=== PATIENT | female | born 1955 | race Caucasian/White ===

== ENCOUNTER 2016-09-24 10:53 | Inpatient (IN) | payer OTHER ==
[~2016-09-24] VITALS: Ht 182.9 cm; Wt 113.3 kg
[~2016-09-24 10:53] MED LIST: ADVAIR HFA120 INHALA IH; AGGRENOX1 CAPSULE PO; ALER-CAP25 M2 PO; AMLODIPINE BESYL5 MG PO; ATENOLOL25 MG PO; BISA-LAX5 MG PO; BISAC-EVAC10 MG PR; CELEBREX200 MG PO; CEPACOL SORE T1 EAC9 MM; CLONIDINE HCL0.1 MG PO; COUGH CONT100 MG/5 M PO; DESYREL100 MG PO; DOXYCYCLINE HY100 MG PO; DULCOLAX10 MG PR; ERGOCALCIF50000 UNIT PO; GLUCAGON1 MG IM; GLUCOPHAGE1000 MG PO; GLUCOPHAGE500 MG PO; GUAIFENESIN600 MG PO; HYZAAR 50-121 TABLET PO; KLOR-CON 1010 ME1 PO; LAXATIVE5 M1 PO; LEVEMIR FL100 UNIT/1 SC; LEVEMIR100 UNIT/2 SC; LEVOTHYROXINE100 MCG PO; LEVOTHYROXINE88 MCG PO; LEXAPRO5 MG PO; LOVENOX40 MG/0.4 SC; LYRICA100 MG PO; MAGNESIUM OXID400 MG PO; MAGNESIUM400 M1 PO; MORPHINE SULFAT15 M1 PO; MUCINEX600 MG PO; MULTI VITAMIN1 EACH PO; NEXIUM40 MG PO; NON-ASPIRIN PA325 MG PO; NOVOLOG PE100 UNITS/ SC; OXYCODONE HCL10 MG PO; PRAVACHOL40 MG PO; PRAVASTATIN SOD40 MG PO; PROTONIX40 MG PO; PROVENTIL HFA6.7 GM IH; REFRESH EYE DR1 EACH BOTH EYES; REFRESH TEARS15 ML BOTH EYES; ROXICODONE5 MG PO; SYNTHROID100 MCG PO; TENORMIN25 MG PO; THERA-M1 EACH PO; TOPAMAX25 MG PO; TOPAMAX50 MG PO; TRAMADOL HCL50 MG PO; TRAZODONE HCL50 MG PO; TYLENOL ARTHRI650 MG PO; TYLENOL REGULA325 MG PO; VENLAFAXINE HCL50 MG PO; VITAMIN D50000 UNI4 PO; VOLTAREN 1% GE100 GM TP; XOPENEX HF200 INHALA IH; ZANTAC150 MG PO; ZOFRAN4 MG PO
[2016-09-24 12:13] LABS: CHLORIDE 106 mEq/L (99-109); SODIUM 140 mEq/L (136-147)
[2016-09-24 12:15] LABS: GLUCOSE 134 mg/dL (70-99)
[2016-09-24 12:16] LABS: ANION GAP 13 MEQ/L (2-14)
[2016-09-24 12:18] LABS: SERUM ETHYL ALCOHOL < 10 mg/dL
[2016-09-24 12:19] LABS: GFR ESTIMATE (CALCULATED) 25 mL/min/
[2016-09-24 12:20] LABS: HEMATOCRIT 40.1 % (36.0-46.0); MCH 32.5 PG (29.0-34.0); MCHC 32.9 G/DL (30.0-36.0); MCV 98.8 FL (83-99); MEAN PLAT.VOLUME 11.3 uM^3 (9.5-12.4); PLATELET COUNT 216 K/uL (156-360); RBC DIS.WIDTH-CV 13.8 % (11.8-14.6); RBC DIS.WIDTH-SD 49.5 % (39-53); RED BLOOD COUNT 4.06 M/uL (3.80-5.20); WHITE BLOOD COUNT 7.4 K/uL (4.1-10.2)
[2016-09-24 12:21] LABS: UREA NITROGEN (BUN) 54 mg/dL (9-23)
[2016-09-24 12:22] LABS: SALICYLATE < 5.0 MG/DL (15-30)
[2016-09-24 12:24] LABS: POTASSIUM 6.1 mEq/L (3.7-5.4)
[2016-09-24] MEDS ORDERED: LOSARTAN POTASS50 MG PO (13:44)
[2016-09-24] MEDS ORDERED: TRAZODONE HCL100 MG PO (13:45)
[2016-09-24] MEDS ORDERED: TRESIBA FL200 UNIT/1 SC (13:47)
[2016-09-24] MEDS ORDERED: DECARA50000 UNIT PO (13:49)
[2016-09-24] MEDS ORDERED: GEMFIBROZIL600 MG PO (13:50)
[2016-09-24] MEDS ORDERED: ATIVAN0.5 MG PO (13:54)
[2016-09-24] MEDS ORDERED: DUONEB 2.5-0.5 M3 ML AEROSOL (13:55)
[2016-09-24 14:28] LABS: ADD MIUA? YES; BILIRUBIN SMALL; BLOOD SMALL; COLOR DK YELLOW ((YELLOW)); GLUCOSE (STRIP) NEGATIVE; KETONES 15; LEUKOCYTES SMALL; NITRITE NEGATIVE; PROTEIN (STRIP) >=300; SPECIFIC GRAVITY 1.027 (1.000-1.030); UROBILINOGEN 0.2 MG/DL (0.2-1.0)
[2016-09-24 14:41] LABS: COCAINE NEGATIVE (150 ng/mL); PHENCYCLIDINE NEGATIVE (25 ng/mL); THC CANNABINOIDS NEGATIVE (50 ng/mL)
[2016-09-24 14:42] LABS: AMPHETAMINE NEGATIVE (500 ng/mL); METHAMPHETAMINE NEGATIVE (500 ng/mL); OPIATES (MORPHINE) PRESUMPTIVE POSITIVE (100 ng/mL)
[2016-09-24 14:43] LABS: BARBITURATES NEGATIVE (200 ng/mL); BENZODIAZEPINES NEGATIVE (150 ng/mL); METHADONE NEGATIVE (200 ng/mL); OXYCODONE PRESUMPTIVE POSITIVE (100 ng/mL); TRICYCLIC ANTIDEPRESSANTS PRESUMPTIVE POSITIVE (300 ng/mL)
[2016-09-24 14:44] LABS: ADD MEDTOX COMMENT Y; INTERNAL CONTROLS VALID? YES; PROPOXYPHENE NEGATIVE (300 ng/mL)
[2016-09-24 14:58] LABS: WHITE BLOOD CELLS 0-5 /HPF (0-5)
[2016-09-24 14:59] LABS: AMORPHOUS URATES CRYSTALS 2+; BACTERIA 1+; CASTS PRESENT /LPF; CRYSTALS PRESENT; EPITHELIAL CELLS 1+; HYALINE CASTS 15-20 /LPF; MUCUS TRACE; UCUL ADDED? NO
[2016-09-24 18:21] VITALS: BP 127/69
[2016-09-24 23:45] VITALS: BP 99/72
[2016-09-25 03:59] VITALS: BP 110/71
[2016-09-25 06:38] LABS: ANION GAP 9 MEQ/L (2-14); CHLORIDE 112 MEQ/L (99-109); GFR ESTIMATE (CALCULATED) 40 mL/min/; POTASSIUM 4.6 MEQ/L (3.7-5.4); SAMPLE HEMOLYSIS CHECK 0; SAMPLE ICTERIC CHECK 0; SAMPLE LIPEMIA CHECK 0; SODIUM 142 MEQ/L (136-147); UREA NITROGEN (BUN) 53 mg/dL (9-23)
[2016-09-25 06:42] LABS: GLUCOSE 67 mg/dL (70-99)
[2016-09-25 07:42] LABS: HEMATOCRIT 33.6 % (36.0-46.0); MCH 31.6 PG (29.0-34.0); MCHC 32.4 G/DL (30.0-36.0); MCV 97.4 FL (83-99); MEAN PLAT.VOLUME 11.3 uM^3 (9.5-12.4); PLATELET COUNT 175 K/uL (156-360); RBC DIS.WIDTH-CV 13.7 % (11.8-14.6); RBC DIS.WIDTH-SD 48.7 % (39-53); RED BLOOD COUNT 3.45 M/uL (3.80-5.20)
[2016-09-25 07:46] VITALS: BP 108/58
[2016-09-25 07:54] LABS: WHITE BLOOD COUNT 4.2 K/uL (4.1-10.2)
[2016-09-25 12:47] VITALS: BP 123/66
[2016-09-25 16:35] LABS: POINT-OF-CARE METER ID UU14174225
[2016-09-25 19:42] VITALS: BP 113/56
[2016-09-25 21:53] LABS: POINT-OF-CARE METER ID UU14174225
[2016-09-26] VITALS: BP 136/85
[2016-09-26 04:00] VITALS: BP 123/68
[2016-09-26 06:37] LABS: ANION GAP 9 MEQ/L (2-14); CHLORIDE 111 MEQ/L (99-109); GFR ESTIMATE (CALCULATED) 53 mL/min/; GLUCOSE 74 mg/dL (70-99); POTASSIUM 3.9 MEQ/L (3.7-5.4); SAMPLE HEMOLYSIS CHECK 0; SAMPLE ICTERIC CHECK 0; SAMPLE LIPEMIA CHECK 0; SODIUM 145 MEQ/L (136-147); UREA NITROGEN (BUN) 45 mg/dL (9-23)
[2016-09-26 07:52] VITALS: BP 141/69
[2016-09-27] VITALS: BP 133/65
[2016-09-27 11:49] LABS: ANION GAP 10 MEQ/L (2-14); CHLORIDE 115 MEQ/L (99-109); GFR ESTIMATE (CALCULATED) > 59 mL/min/; GLUCOSE 111 mg/dL (70-99); POTASSIUM 4.2 MEQ/L (3.7-5.4); SAMPLE HEMOLYSIS CHECK 1; SAMPLE ICTERIC CHECK 0; SAMPLE LIPEMIA CHECK 0; SODIUM 148 MEQ/L (136-147); UREA NITROGEN (BUN) 26 mg/dL (9-23)
[2016-09-27 11:57] LABS: HEMATOCRIT 33.8 % (36.0-46.0); MCH 31.4 PG (29.0-34.0); MCHC 32.5 G/DL (30.0-36.0); MCV 96.6 FL (83-99); MEAN PLAT.VOLUME 11.4 uM^3 (9.5-12.4); PLATELET COUNT 163 K/uL (156-360); RBC DIS.WIDTH-SD 45.4 % (39-53); WHITE BLOOD COUNT 2.9 K/uL (4.1-10.2)
[2016-09-27 16:18] VITALS: BP 199/93
[2016-09-27 23:36] VITALS: BP 133/71
[2016-09-28 08:58] LABS: POINT-OF-CARE METER ID UU14174225
[2016-09-28 16:03] VITALS: BP 152/75
[2016-09-28 22:40] LABS: POINT-OF-CARE METER ID UU14174225
[2016-09-29] VITALS: BP 143/72
[2016-09-29 07:55] LABS: POINT-OF-CARE METER ID UU14174225
[2016-09-29 08:01] VITALS: BP 138/70
[2016-09-29] MEDS ORDERED: CEFDINIR300 MG PO (14:01)
== END 2016-09-29 18:00 | DRG 690 ==
LOC: EME 10:53 → 5SOUTH 14:17 → EDOF 14:17 → 5SOUTH 18:07
PROVIDERS: Emergency Medicine; Internal Medicine; Internal Medicine Nephrology; Physician Assistant; Student in an Organized Health Care Education/Training Program
DX: N39.0 Urinary tract infection, site not specified (principal); F33.9 Major depressive disorder, recurrent, unspecified; I69.359 Hemiplegia and hemiparesis following cerebral infarction affecting unspecified side; R45.851 Suicidal ideations; R45.850 Homicidal ideations; E11.21 Type 2 diabetes mellitus with diabetic nephropathy; E11.22 Type 2 diabetes mellitus with diabetic chronic kidney disease; E87.5 Hyperkalemia; D64.9 Anemia, unspecified; I12.9 Hypertensive chronic kidney disease with stage 1 through stage 4 chronic kidney disease, or unspecified chronic kidney disease; N18.2 Chronic kidney disease, stage 2 (mild); R41.82 Altered mental status, unspecified; Z79.4 Long term (current) use of insulin; J44.9 Chronic obstructive pulmonary disease, unspecified; B19.20 Unspecified viral hepatitis C without hepatic coma; E03.9 Hypothyroidism, unspecified; F60.3 Borderline personality disorder; K21.9 Gastro-esophageal reflux disease without esophagitis; E86.0 Dehydration
CPT/HCPCS: 70450; 80048; 80069; 81003; 82570; 82948; 84132 91; 84156; 84999; 85027; 90837; 90839; 93005; 99281; 99285; G0480; J0696; J1644; J1815; J7030; J7050

== ENCOUNTER 2017-04-28 17:20 | Emergency (ER) | payer OTHER ==
[~2017-04-28] VITALS: Ht 177.8 cm; Wt 111.4 kg
[~2017-04-28 17:20] MED LIST changes: +ATIVAN0.5 MG PO; +CEFDINIR300 MG PO; +DECARA50000 UNIT PO; +DUONEB 2.5-0.5 M3 ML AEROSOL; +GEMFIBROZIL600 MG PO; +LOSARTAN POTASS50 MG PO; +TRAZODONE HCL100 MG PO; +TRESIBA FL200 UNIT/1 SC
[2017-04-28 22:00] VITALS: BP 108/65
== END 2017-04-28 22:01 ==
LOC: EME 17:20
PROC: 3E0234Z Introduction of Serum, Toxoid and Vaccine into Muscle, Percutaneous Approach (ICD-10-PCS; principal; 2017-04-28)
DX: S50.02XA Contusion of left elbow, initial encounter (principal); S50.812A Abrasion of left forearm, initial encounter; S50.811A Abrasion of right forearm, initial encounter; V00.831A Fall from motorized mobility scooter, initial encounter; Y92.410 Unspecified street and highway as the place of occurrence of the external cause; Z23 Encounter for immunization; I69.351 Hemiplegia and hemiparesis following cerebral infarction affecting right dominant side; I10 Essential (primary) hypertension; E11.40 Type 2 diabetes mellitus with diabetic neuropathy, unspecified; J44.9 Chronic obstructive pulmonary disease, unspecified; E78.5 Hyperlipidemia, unspecified; K21.9 Gastro-esophageal reflux disease without esophagitis; Z79.84 Long term (current) use of oral hypoglycemic drugs
CPT/HCPCS: 73030; 73080; 99281; 99284

== ENCOUNTER 2017-12-06 11:10 | Inpatient (IN) | payer OTHER ==
[~2017-12-06] VITALS: Ht 175.3 cm; Wt 119.4 kg
[~2017-12-06 11:10] MED LIST changes: +MORPHINE SULFAT30 M2 PO
[2017-12-06 11:53] LABS: BASOPHIL (%) 0.6 % (0-1); EOSINOPHIL COUNT 0.2 K/uL (0-0.3); HEMATOCRIT 35.4 % (36.0-46.0); HEMOGLOBIN 11.4 G/DL (11.9-15.5); IMMATURE GRANULOCYTE (%) 0.4 % (0.0-0.7); LYMPHOCYTE (%) 13.7 % (15-42); MCH 30.3 PG (29.0-34.0); MCHC 32.2 G/DL (30.0-36.0); MCV 94.1 FL (83-99); MONOCYTE (%) 5.8 % (3-12); MONOCYTE COUNT 0.4 K/uL (0-0.8); NEUTROPHIL (%) 76.5 % (45-76); NEUTROPHIL COUNT 5.4 K/uL (1.8-6.4); PLATELET COUNT 180 K/uL (156-360); RBC DIS.WIDTH-CV 13.6 % (11.8-14.6); RED BLOOD COUNT 3.76 M/uL (3.80-5.20); WHITE BLOOD COUNT 7.1 K/uL (4.1-10.2)
[2017-12-06 12:02] LABS: AMYLASE 51 IU/L (1-118); CHLORIDE 106 mEq/L (99-109); INTER. NORMALIZED RATIO 1.1; POTASSIUM 4.2 mEq/L (3.7-5.4); SODIUM 141 mEq/L (136-147)
[2017-12-06 12:04] LABS: GLUCOSE 123 mg/dL (70-99)
[2017-12-06 12:05] LABS: PTT 27.6 SEC (25-37)
[2017-12-06 12:07] LABS: SERUM ETHYL ALCOHOL < 10 mg/dL
[2017-12-06 12:08] LABS: GFR ESTIMATE (CALCULATED) 27 mL/min/; UREA NITROGEN (BUN) 61 mg/dL (9-23)
[2017-12-06 12:11] LABS: LIPASE 17 U/L (1.0-51.0)
[2017-12-06 12:14] LABS: TROP-I INTERPRETATION NEGATIVE; TROPONIN-I < 0.01 ng/mL (0.0-0.30)
[2017-12-06 12:50] LABS: APPEARANCE CLEAR ((CLEAR)); BILIRUBIN NEGATIVE; BLOOD NEGATIVE; COLOR YELLOW ((YELLOW)); GLUCOSE (STRIP) NEGATIVE; KETONES NEGATIVE; LEUKOCYTES NEGATIVE; NITRITE NEGATIVE; PROTEIN (STRIP) NEGATIVE; SPECIFIC GRAVITY 1.018 (1.000-1.030); UCUL ADDED? NO; UROBILINOGEN 0.2 MG/DL (0.2-1.0)
[2017-12-06 13:12] LABS: AMPHETAMINE NEGATIVE (500 ng/mL); BARBITURATES NEGATIVE (200 ng/mL); BENZODIAZEPINES NEGATIVE (150 ng/mL); BUPRENORPHINE NEGATIVE (10 ng/mL); COCAINE NEGATIVE (150 ng/mL); METHADONE NEGATIVE (200 ng/mL); METHAMPHETAMINE NEGATIVE (500 ng/mL); OPIATES (MORPHINE) PRESUMPTIVE POSITIVE (100 ng/mL); OXYCODONE PRESUMPTIVE POSITIVE (100 ng/mL); PHENCYCLIDINE NEGATIVE (25 ng/mL); PROPOXYPHENE NEGATIVE (300 ng/mL); THC CANNABINOIDS NEGATIVE (50 ng/mL); TRICYCLIC ANTIDEPRESSANTS NEGATIVE (300 ng/mL)
[2017-12-06] MEDS ORDERED: KLOR-CON M1010 MEQ PO (13:36)
[2017-12-06] MEDS ORDERED: LASIX20 MG PO (13:37)
[2017-12-06] MEDS ORDERED: TOPROL XL50 MG PO (13:38)
[2017-12-06] MEDS ORDERED: TRICOR145 MG PO (13:43)
[2017-12-06] MEDS ORDERED: EFFEXOR50 MG PO (13:44)
[2017-12-06] MEDS ORDERED: DUONEB 2.5-0.5 M3 ML AEROSOL (13:45)
[2017-12-06 14:06] LABS: TOTAL PROTEIN 6.9 g/dL (6.4-8.3)
[2017-12-06 14:08] LABS: TOTAL BILIRUBIN 0.4 mg/dL (0.0-1.0)
[2017-12-06 14:09] LABS: ALKALINE PHOSPHATASE 35 IU/L (3-129)
[2017-12-06 14:12] LABS: ALT (GPT) 15 IU/L (3-49); AST (GOT) 25 IU/L (2-34); DIRECT BILIRUBIN 0.2 mg/dL (0.0-0.3)
[2017-12-06 19:57] VITALS: BP 104/60
[2017-12-06 23:59] VITALS: BP 118/68
[2017-12-07 07:28] LABS: HEMATOCRIT 32.3 % (36.0-46.0); HEMOGLOBIN 10.6 G/DL (11.9-15.5); MCHC 32.8 G/DL (30.0-36.0); MCV 94.4 FL (83-99); NRBC (%) 1.5 /100 WBC (0-0); PLATELET COUNT 141 K/uL (156-360); RBC DIS.WIDTH-CV 13.8 % (11.8-14.6); RBC DIS.WIDTH-SD 47.7 % (39-53); RED BLOOD COUNT 3.42 M/uL (3.80-5.20); WHITE BLOOD COUNT 3.3 K/uL (4.1-10.2)
[2017-12-07 08:00] VITALS: BP 123/62
[2017-12-07 08:08] LABS: CHLORIDE 111 MEQ/L (99-109); GLUCOSE 129 mg/dL (70-99); POTASSIUM 4.3 MEQ/L (3.7-5.4); SODIUM 142 MEQ/L (136-147); UREA NITROGEN (BUN) 43 mg/dL (9-23)
[2017-12-07 08:16] LABS: CREATININE 1.4 MG/DL (0.6-1.3); GFR ESTIMATE (CALCULATED) 40 mL/min/
[2017-12-07 10:12] LABS: PLAT.SUFFICIENCY DECREASED
[2017-12-07 11:22] VITALS: BP 146/68
[2017-12-07 16:00] VITALS: BP 166/76
[2017-12-07 21:27] VITALS: BP 131/77
[2017-12-08 01:46] VITALS: BP 138/90
[2017-12-08 07:58] VITALS: BP 176/80
[2017-12-08 09:24] VITALS: BP 163/77
[2017-12-08 09:40] LABS: HEMATOCRIT 34.2 % (36.0-46.0); MCH 29.5 PG (29.0-34.0); MCHC 32.2 G/DL (30.0-36.0); MCV 91.7 FL (83-99); PLATELET COUNT 138 K/uL (156-360); RBC DIS.WIDTH-CV 13.1 % (11.8-14.6); RBC DIS.WIDTH-SD 43.8 % (39-53); RED BLOOD COUNT 3.73 M/uL (3.80-5.20); WHITE BLOOD COUNT 3.8 K/uL (4.1-10.2)
[2017-12-08 10:16] LABS: CHLORIDE 112 MEQ/L (99-109); CREATININE 1.1 MG/DL (0.6-1.3); GFR ESTIMATE (CALCULATED) 53 mL/min/; GLUCOSE 180 mg/dL (70-99); POTASSIUM 3.6 MEQ/L (3.7-5.4); SODIUM 143 MEQ/L (136-147); UREA NITROGEN (BUN) 24 mg/dL (9-23)
[2017-12-08 11:07] VITALS: BP 164/75
[2017-12-08 13:39] VITALS: BP 158/82
[2017-12-08 20:03] VITALS: BP 160/80
[2017-12-09 00:31] VITALS: BP 135/75
[2017-12-09 07:51] VITALS: BP 168/78
[2017-12-09 11:53] VITALS: BP 182/84
[2017-12-09 13:38] LABS: MCH 29.6 PG (29.0-34.0); MCHC 32.4 G/DL (30.0-36.0); MCV 91.4 FL (83-99); PLATELET COUNT 148 K/uL (156-360); RBC DIS.WIDTH-CV 13.2 % (11.8-14.6); RBC DIS.WIDTH-SD 44.3 % (39-53); RED BLOOD COUNT 3.72 M/uL (3.80-5.20)
[2017-12-09 14:07] LABS: CHLORIDE 115 MEQ/L (99-109); CREATININE 1.1 MG/DL (0.6-1.3); GFR ESTIMATE (CALCULATED) 53 mL/min/; GLUCOSE 210 mg/dL (70-99); POTASSIUM 3.8 MEQ/L (3.7-5.4); SODIUM 144 MEQ/L (136-147); UREA NITROGEN (BUN) 18 mg/dL (9-23)
== END 2017-12-09 15:59 | DRG 682 ==
LOC: EME 11:10 → 5EAST 13:40 → 4SOUTH 13:40 → EDOF 13:40 → ENRESERV 13:41 → 5EAST 19:44 → ENRESERV 12-08 02:51 → 2SOUTH 12-08 04:47 → ENRESERV 12-08 04:47 → 4SOUTH 12-08 07:13 → ENRESERV 12-08 11:59 → 5SOUTH 12-08 13:30
PROVIDERS: Emergency Medicine; Internal Medicine
DX: N17.9 Acute kidney failure, unspecified (principal); G93.41 Metabolic encephalopathy; E86.0 Dehydration; E11.649 Type 2 diabetes mellitus with hypoglycemia without coma; F48.2 Pseudobulbar affect; I69.351 Hemiplegia and hemiparesis following cerebral infarction affecting right dominant side; I69.320 Aphasia following cerebral infarction; I69.322 Dysarthria following cerebral infarction; E11.40 Type 2 diabetes mellitus with diabetic neuropathy, unspecified; I10 Essential (primary) hypertension; E03.9 Hypothyroidism, unspecified; E66.9 Obesity, unspecified; Z68.38 Body mass index [BMI] 38.0-38.9, adult; J44.9 Chronic obstructive pulmonary disease, unspecified; I25.10 Atherosclerotic heart disease of native coronary artery without angina pectoris; B19.20 Unspecified viral hepatitis C without hepatic coma; D64.9 Anemia, unspecified; E78.5 Hyperlipidemia, unspecified; K21.9 Gastro-esophageal reflux disease without esophagitis; F32.9 Major depressive disorder, single episode, unspecified; F60.3 Borderline personality disorder; Z87.891 Personal history of nicotine dependence; Z90.710 Acquired absence of both cervix and uterus; Z96.651 Presence of right artificial knee joint; Z79.84 Long term (current) use of oral hypoglycemic drugs; Z91.5 Personal history of self-harm; Z82.49 Family history of ischemic heart disease and other diseases of the circulatory system; Z82.3 Family history of stroke
CPT/HCPCS: 70450; 70551; 71045; 74176; 80048; 80076; 81003; 82150; 82948; 83690; 84484; 84999; 85025; 85027; 85610; 85730; 86850; 86900; 86901; 87040; 92610 GN; 93005; 93970; 94640; 94640 76; 94760; 94799; 99202; 99281; 99285; G0480; G8996 GN CJ; G8997 GN CJ; G8998 GN CJ; J1644; J7030; J7040